=== PATIENT | male | born 1995 | race Caucasian/White ===

== ENCOUNTER → 2016-06-28 | Outpatient (CLI) | payer OTHER ==
[~2016-06-28] MED LIST: ALLERGY RELIEF10 M1 PO; ASACOL HD800 MG PO; BENADRYL PO; EYE ALLERGY REL15 M1; FLAGYL PO; HYDROCORTISONE28 GM TOP; IMURAN50 MG PO; LORATADINE PO; PANTOPRAZOLE SO40 MG PO; PREDNISONE; PREDNISONE PO; PROBIOTIC; REMICADE; REMICADE IV; ZYRTEC ITCHY EYE5 ML OP; [UNRECOGNIZED DRUG - OTHER]; [UNRECOGNIZED DRUG - OTHER] TOP
[2016-06-28 09:21] LABS: HEMATOCRIT 40.9 % (38.0-50.0); HEMOGLOBIN 13.1 gm/dL (13.0-16.0); MEAN CELL VOLUME 76.8 FL (83-96); MEAN CORPUSCULAR HEMOGLOBIN 24.6 PG (28-34); MEAN CORPUSCULAR HGB CONC 32.1 g/dL (30-36); MEAN PLATELET VOLUME 7.9 FL (6.5-11.5); RED BLOOD COUNT 5.32 X10e (3.90-5.60); RED CELL DISTRIBUTION WIDTH 17.8 % (11.0-15.5); WHITE BLOOD COUNT 8.5 X10e3 (4.0-10.5)
[2016-06-28 09:53] LABS: ALBUMIN SERUM 4.1 g/dL (3.5-5.0); ALKALINE PHOSPHATASE 97 U/L (32-92); ALT (SGPT) 27 U/L (8-36); AST (SGOT) 28 U/L (13-38); BILIRUBIN,TOTAL 0.5 mg/dL (0.2-2.0); BLOOD UREA NITROGEN 14 mg/dL (9-23); CALCIUM SERUM 9.2 mg/dL (8.4-10.2); CARBON DIOXIDE 26 mmol/L (22-31); CHLORIDE 103 mmol/L (100-111); CREATININE SERUM 0.8 mg/dL (0.6-1.4); GLOM FILT RATE Estimated ABOVE60 mL/min (>60); GLUCOSE FASTING 94 mg/dL (70-110); POTASSIUM 4.3 mmol/L (3.5-5.1); PROTEIN TOTAL SERUM 7.6 g/dL (6.0-8.3); SODIUM 136 mmol/L (135-145)
== END | disposition home or self-care (01) ==
LOC: CLAB 08:53
PROVIDERS: Nurse Practitioner
DX: K51.90 Ulcerative colitis, unspecified, without complications (principal)
CPT/HCPCS: 36415; 80053; 85027; 96413; 96415; J1745

== ENCOUNTER 2016-07-12 14:03 | Emergency (ER) | payer OTHER ==
[~2016-07-12 14:03] MED LIST changes: -REMICADE
== END 2016-07-12 14:45 | disposition home or self-care (01) ==
LOC: CFTX 14:03
DX: L05.01 Pilonidal cyst with abscess (principal); Z23 Encounter for immunization
CPT/HCPCS: 10080; 90471; 90715; 99283

== ENCOUNTER 2016-07-14 12:35 | Emergency (ER) | payer OTHER | END 2016-07-14 12:46 | disposition home or self-care (01) | LOC: CFTX 12:35 | DX: Z48.01 Encounter for change or removal of surgical wound dressing (principal) | CPT/HCPCS: 99281 ==

== ENCOUNTER → 2016-08-23 | Outpatient (CLI) | payer OTHER ==
[~2016-08-23] MED LIST changes: +REMICADE
[2016-08-23 09:45] LABS: BASOPHIL% 0.5 % (0-2.5); EOSINOPHIL# 0.2 X10e3 (0-0.7); EOSINOPHIL% 2.6 % (0.0-7.0); LYMPHOCYTE# 3.1 X10e3 (1.0-3.5); LYMPHOCYTE% 41.1 % (17.0-45.0); MEAN CELL VOLUME 77.6 FL (83-96); MEAN CORPUSCULAR HEMOGLOBIN 25.8 PG (28-34); MEAN CORPUSCULAR HGB CONC 33.2 g/dL (30-36); MEAN PLATELET VOLUME 8.4 FL (6.5-11.5); MONOCYTE# 0.6 X10e3 (0-1.0); MONOCYTE% 7.3 % (3.0-12.0); NEUTROPHIL# 3.7 X10e3 (1.5-7.1); NEUTROPHIL% 48.5 % (40-75); PLATELET COUNT 225 X10e3 (140-420); RED BLOOD COUNT 5.41 X10e (3.90-5.60); WHITE BLOOD COUNT 7.6 X10e3 (4.0-10.5)
[2016-08-23 09:46] LABS: DIFF IND NO
[2016-08-23 10:10] LABS: BUN/CREATININE RATIO 21.42; CALCIUM SERUM 9.3 mg/dL (8.4-10.2); CREATININE SERUM 0.7 mg/dL (0.6-1.4); GLOM FILT RATE Estimated 136.9 mL/min (>60); POTASSIUM 3.9 mmol/L (3.5-5.1)
== END | disposition home or self-care (01) ==
LOC: CSSDAY 08:23
PROVIDERS: Nurse Practitioner
DX: K51.90 Ulcerative colitis, unspecified, without complications (principal); Z79.899 Other long term (current) drug therapy
CPT/HCPCS: 80048; 85025; 96372; 96413; 96415; J1745

== ENCOUNTER → 2016-10-18 | Outpatient (CLI) | payer OTHER ==
[2016-10-18 13:14] LABS: HEMATOCRIT 46.2 % (38.0-50.0); HEMOGLOBIN 15.1 gm/dL (13.0-16.0); MEAN CELL VOLUME 81.2 FL (83-96); MEAN CORPUSCULAR HEMOGLOBIN 26.5 PG (28-34); MEAN CORPUSCULAR HGB CONC 32.7 g/dL (30-36); MEAN PLATELET VOLUME 8.2 FL (6.5-11.5); RED BLOOD COUNT 5.69 X10e (3.90-5.60); RED CELL DISTRIBUTION WIDTH 15.8 % (11.0-15.5)
[2016-10-18 13:36] LABS: ALBUMIN SERUM 4.6 g/dL (3.5-5.0); BILIRUBIN,TOTAL 1.1 mg/dL (0.2-2.0); CALCIUM SERUM 9.5 mg/dL (8.4-10.2); CREATININE SERUM 0.7 mg/dL (0.6-1.4); GLOM FILT RATE Estimated 135.9 mL/min (>60); POTASSIUM 4.4 mmol/L (3.5-5.1); PROTEIN TOTAL SERUM 8.2 g/dL (6.0-8.3)
== END | disposition home or self-care (01) ==
LOC: CSSDAY 07:15
PROVIDERS: Internal Medicine Gastroenterology
DX: K51.90 Ulcerative colitis, unspecified, without complications (principal); Z79.899 Other long term (current) drug therapy
CPT/HCPCS: 36415; 80053; 85027; 96413; 96415; J1745

== ENCOUNTER → 2016-12-13 | Outpatient (CLI) | payer OTHER ==
[2016-12-13 09:00] LABS: HEMATOCRIT 43.1 % (38.0-50.0); HEMOGLOBIN 14.6 gm/dL (13.0-16.0); MEAN CELL VOLUME 83.5 FL (83-96); MEAN CORPUSCULAR HEMOGLOBIN 28.3 PG (28-34); MEAN CORPUSCULAR HGB CONC 33.9 g/dL (30-36); MEAN PLATELET VOLUME 7.9 FL (6.5-11.5); RED BLOOD COUNT 5.16 X10e (3.90-5.60); RED CELL DISTRIBUTION WIDTH 14.4 % (11.0-15.5)
[2016-12-13 09:34] LABS: ALBUMIN SERUM 4.4 g/dL (3.5-5.0); BILIRUBIN,TOTAL 0.7 mg/dL (0.2-2.0); BUN/CREATININE RATIO 16.25; CALCIUM SERUM 9.4 mg/dL (8.4-10.2); CREATININE SERUM 0.8 mg/dL (0.6-1.4); GLOM FILT RATE Estimated 128.6 mL/min (>60); POTASSIUM 4.2 mmol/L (3.5-5.1); PROTEIN TOTAL SERUM 7.6 g/dL (6.0-8.3)
== END | disposition home or self-care (01) ==
LOC: CSSDAY 08:30
PROVIDERS: Internal Medicine Gastroenterology
DX: K51.90 Ulcerative colitis, unspecified, without complications (principal); Z79.899 Other long term (current) drug therapy
CPT/HCPCS: 36415; 80053; 85027; 96413; 96417; J1745